=== PATIENT | male | born 1970 | race Hispanic/Latino ===

== ENCOUNTER 2019-04-25 09:27 | Outpatient (CLI) | payer BC ==
--- NOTE | 2019-04-25 12:40 | CT ---
CT ABDOMEN AND PELVIS WITHOUT CONTRAST: HISTORY: Abdominal pain. History of kidney stones. COMPARISON: 06/11/2013 FINDINGS: The lung bases are clear. The liver shows suggestion of some fatty change. It is within normal limits in size. The spleen, panc reas and gallbladder regions all appear unremarkable. The right and left adrenal glands are normal in appearance. There are hypodensities involving both ki dneys, which are most compatible with cysts. There is a subcentimeter more dense exophytic lesion inv olving the posterior cortex of the left kidney which has the appearance of a small hemorrhagic cyst. There are numerous bilateral renal calculi. One of the larger calculi is on the left, it is 7 mm. The re is no evidence of obstruction of either kidney, however there are several distal left ureteral dave culi. One is more punctate in size. The other two calcifications measure in the 5 to 6 mm range. Ther e is no dilatation of the ureter associated with this. There is bladder wall thickening which would s uggest some element of bladder outlet obstruction. There is no significant periaortic or mesenteric a denopathy. Some minimal diverticulosis of the colon is noted. No pelvic lymphadenopathy or mass. The appendix is normal. IMPRESSION: 1. Suggestion of some fatty change of the liver. 2. Small hiatal hernia. 3. Numerous bilateral renal calculi although there is no obstruction of either kidney. There are johnie ral distal right ureteral calculi present, located just at the level of the ureteropelvic junction. T wo of these are in the 6 mm range. The third is smaller in size. 4. Minimal diverticulosis of the colon. 5. Hypo and hyperdensities within both kidneys which are felt to represent cysts. POS: C
== END 2019-04-25 09:28 | disposition home or self-care (01) ==
LOC: SCSCT 09:27
PROVIDERS: ATTEND Urology
DX: N20.0 Calculus of kidney (principal); K44.9 Diaphragmatic hernia without obstruction or gangrene
CPT/HCPCS: 74176

== ENCOUNTER 2019-06-12 07:30 | Outpatient (CLI) | payer BC ==
--- NOTE | 2019-06-12 08:05 | CT ---
CT ABDOMEN AND PELVIS WITHOUT CONTRAST: HISTORY: Kidney stones COMPARISON: 02/23/2019 FINDINGS: Absence of oral and IV contrast reduces the sensitivity of the exam particularly for the evaluation o f solid organs and bowel. The lung bases are clear. No free air or free fluid is seen in the abdomen or pelvis. No calcified ga llstones are noted. The appendix is normal. There is mild colonic diverticulosis. There are multiple bilateral renal calculi. There are cysts in the kidneys is either side including h emorrhagic cysts which is stable. There are 3 calculi in the distal right ureter measuring 4 mm, 2 mm and 6 mm superior to inferior. The 6 mm calculus is at the right UVJ. No significant hydroureteron ephrosis seen on either side. No calculi are seen in the left ureter or the urinary bladder. There is mild prostatic enlargement. There are vascular calcifications without evidence of aneurysmal dilatation of the abdominal aorta. T here are mild degenerative changes in the lower lumbar spine. IMPRESSION: 1. Nonobstructing bilateral renal calculi 2. Bilateral renal cysts 3. Multiple calculi in the distal right ureter including UVJ without high-grade obstruction. 4. Colonic diverticulosis
== END 2019-06-12 07:31 | disposition home or self-care (01) ==
LOC: SCSCT 07:30
DX: M54.5 Low back pain (principal); N20.2 Calculus of kidney with calculus of ureter; N28.1 Cyst of kidney, acquired; K57.30 Diverticulosis of large intestine without perforation or abscess without bleeding
CPT/HCPCS: 74176

== ENCOUNTER 2019-12-30 14:14 | Outpatient (CLI) | payer BC ==
--- NOTE | 2019-12-30 15:36 | RAD ---
Abdomen one view HISTORY: Renal stones. COMPARISON: 06/12/2019. FINDINGS: Visualized bowel gas pattern is nonspecific. Multiple irregular calcifications overlie calyces throughout each kidney, in distribution and appeara nce similar to the stones on CT from 06/12/2019. Small calcifications projecting over the pelvis are favored to be vascular in origin. No ureteral dave cifications are reliably demonstrated. IMPRESSION : Extensive bilateral renal calculi.
== END 2019-12-30 14:15 | disposition home or self-care (01) ==
LOC: SCSRAD 14:14
PROVIDERS: ATTEND Urology
DX: N20.2 Calculus of kidney with calculus of ureter (principal)
CPT/HCPCS: 74018